=== PATIENT | male | born 1970 | race Two or more races ===

== ENCOUNTER 2025-02-07 11:02 | Emergency (ER) | payer MEDICAID, SELFPAY ==
[2025-02-07 11:03] VITALS: BMI 31.3
--- NOTE | 2025-02-07 11:06 | EKG_ITS ---
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
[2025-02-07 11:16] VITALS: BP 136/91; PULSE 88; RESP 18; TEMP 36.9; O2SAT 99
--- NOTE | 2025-02-07 11:17 | XR_ITS ---
Examination: PA chest single view TECHNIQUE: Upright PA chest single view Date and time: February 07, 2025, 1132 hours INDICATIONS: Chest pain coughing beginning 4 days ago FINDINGS: No significant cardiac enlargement No pneumonia or pulmonary edema The osseous structures are intact IMPRESSION: No pneumonia identified
--- NOTE | 2025-02-07 11:18 | PD.EDCHEST ---
ED Chest Pain RME/HPI General Stated Complaint: LIGHTHEADED/CHEST PAIN x 2 DAYS Time Seen by Provider: 02/07/25 11:13 Arrival date/time: 02/07/25 11:02 RME / HPI RME / HPI narrative: 55-year-old male patient with no significant past medical history, came in for evaluation regarding chest pain. Patient has been having chest pain, described as dull ache, or getting to the back, she been going for the last 2 days. This morning patient tried to go back to work, and felt dizzy. Patient has been sick for the last 1 week with flulike symptoms including productive cough with whitish phlegm. Denies any fever denies any other complaints no medication was taken prior to arrival. Related Data Previous Rx's ?Medication ?Instructions ?Recorded ibuprofen 600 mg tablet 600 mg PO Q8H PRN fever or pain 07/26/23 #30 tabs Allergies Allergy/AdvReac Type Severity Reaction Status Date / Time No Known Allergies Allergy Verified 02/07/25 11:05 Review of Systems Review of Systems Narrative Review of Systems: Review of system reviewed and within normal limits except mentioned in HPI ED Exam Narrative Physical exam: VITAL SIGNS: Reviewed. GENERAL APPEARANCE: Alert and interactive, follows commands, no acute distress, HEAD AND FACE: Non-traumatic. ENT: PERRL, pink conjunctivitis, eyelid no trauma, Mucous membrane moist. NECK: Supple, nontender, no nuchal rigidity. CHEST: No tenderness, no crepitus, no paradoxical movement, no retractions. LUNGS: Clear, well ventilated, symmetric, no rales, no wheezing, no ronchi, no stridor, good breath sounds bilaterally. HEART: Regular rate, regular rhythm, no murmur, no gallops. ABDOMEN: Soft, positive bowel sounds, nondistended, no guarding, nontender, no rebound, no masses, RECTAL: Deferred. GENITAL: Deferred. NEUROLOGICAL: Gross motor function intact sensory function intact, Appropriate for age. MUSCULOSKELETAL: low back nontender, full range of motion. EXTREMITIES: Nontender, full range of motion. SKIN: Color pink, dry, no rash, no lacerations, no abrasions, no contusions. LYMPHATICS: Deferred. Course Quality Measures none Orders Category Date Time Status EKG (ED ONLY) *Do not use* NOW Care 02/07/25 11:06 Completed EKG (ED Only) Stat Exams 02/07/25 11:06 Draft XR chest 1V Stat Exams 02/07/25 11:17 Completed CBC Stat Lab 02/07/25 11:30 Completed Comprehensive Metabolic Panel Stat Lab 02/07/25 11:30 Completed Partial Thromboplastin Time Stat Lab 02/07/25 11:30 Completed Troponin I Stat Lab 02/07/25 11:30 Completed Urinalysis, C/S if Indicated Stat Lab 02/07/25 11:50 Completed Vital Signs Vital signs: Vital Signs Temperature 98.5 F 02/07/25 11:16 Pulse Rate 88 02/07/25 11:16 Respiratory Rate 18 02/07/25 11:16 Blood Pressure 136/91 H 02/07/25 11:16 Pulse Oximetry (%) 99 02/07/25 11:16 Oxygen Delivery Method Room Air 02/07/25 11:16 Chest Pain MDM Narrative MDM Narrative:: 55-year-old male patient with no significant past medical history, came in for evaluation regarding chest pain. Patient has been having chest pain, described as dull ache, or getting to the back, she been going for the last 2 days. This morning patient tried to go back to work, and felt dizzy. Patient has been sick for the last 1 week with flulike symptoms including productive cough with whitish phlegm. Denies any fever denies any other complaints no medication was taken prior to arrival. Patient's cardiac workup today all came back normal. I personally reviewed and interpreted the x-ray of this patient. There is no acute abnormalities found, no infiltrates no pneumothorax no hemothorax normal chest x-ray. Review of other structures was without significant abnormal findings also. I additionally reviewed the radiologist report and agree with the interpretation. EKG showed normal sinus rhythm, ventricular rate of 69 bpm, no ST segment elevation depression noted. Results discussed with the patient. Patient stable for discharge home. Patient refused prescription of meclizine. Patient data External records reviewed:: None Clinical information provided by:: patient Social determinants that could affect healthcare access:: none Patient has the following chronic illnesses:: None How is presenting disease/condition affected by chronic disease/condition?: no chronic disease Evaluation data The following diagnostics were reviewed and interpreted by me:: lab results, radiology exam(s) and EKG tracing(s) Lab and/or radiology exams considered but not ordered:: None Interpretation Summary: See results MDM Medications / Prescriptions Medications or Prescriptions considered but not ordered:: None Medication administrations:: None Consultations Consultation(s) initiated? (list below): No Diagnosis Chest Pain Differential Diagnosis: stable angina, costochondritis and chest pain Most likely diagnosis given after review of the tests above:: Chest pain, dizziness Admission Indicated Admission indicated?: not indicated Admission Request Was there a request for admission?: No Disposition Plan Disposition Plan: Discharge Discharge Attestation Discharge Attestation: The patient was given an opportunity to ask questions and understood the discharge instructions. Discharge instructions specifically effects, indications for sooner follow up or return to the emergency department, and the expected course of current diagnosis. Patient condition: Stable Discharge Plan Plan Patient Disposition: HOME (Self Care) Discharge Disposition comment: Stable Prescriptions/Referrals Prescriptions/Med Rec: No Action ibuprofen 600 mg tablet 600 mg PO Q8H PRN (Reason: fever or pain) Qty: 30 0RF Referrals: No Primary/Family,Physician [Primary Care Provider] - In 1 week Problem List Clinical Impression: Chest pain, Dizziness Patient/Caregiver Discharge Instructions Discharge Activity: activity as tolerated Education Materials: ED Chest Pain, Noncardiac Additional Instructions: Thank you for the opportunity for serving you today. You are stable for discharged . You are advised to: Follow-up with your PCP in 1 to 2 days Return to ED for worsening of symptoms Increase oral fluids Print Language: Grenadian Stand Alone Forms: Cecily Award Info., Patient Portal Info Letter RACHEL/TORRIE Supervising Physician GARCIA Supervising Physician: MD Gui
[2025-02-07 11:49] LABS: Basophils # (Auto) 0.1 Thou/mm3 (0.0-0.2); Basophils % (Auto) 1 % (0-2.5); Eosinophils # (Auto) 0.2 Thou/mm3 (0.0-0.5); Eosinophils % (Auto) 3 % (0-10); Hematocrit 47.0 % (41.0-53.0); Hemoglobin 16.5 g/dL (13.5-16.0); Immature Granulocytes Auto 0.08 Thou/mm3 (0.00-0.00); Lymphocytes # (Auto) 2.7 Thou/mm3 (1.0-4.8); Lymphocytes % (Auto) 32 % (10-50); Mean Corpuscular HGB Conc 35.1 g/dl (31.0-37.0); Mean Corpuscular Hemoglobin 30.4 pg (25.0-35.0); Mean Corpuscular Volume 87 fL (80-100); Monocytes # (Auto) 0.6 Thou/mm3 (0.0-0.8); Monocytes % (Auto) 7 % (0-12); Neutrophils # (Auto) 4.9 Thou/mm3 (1.8-7.7); Neutrophils % (Auto) 57 % (37-80); Nucleated Red Blood Cell # 0.00 Thou/mm3 (0.00-0.00); Nucleated Red Blood Cell % 0 /100 WBC (0); Partial Thromboplastin Time 27.8 Seconds (22.0-36.0); Platelet Count 194 Thou/mm3 (140-440); RDW Standard Deviation 40.4 fL (35.1-43.9); Red Blood Count 5.42 Miln/mm3 (4.50-5.90); White Blood Count 8.5 Thou/mm3 (3.8-10.6)
[2025-02-07 11:57] LABS: Collection Type, Urine Clean Catch; Squamous Epithelial Cell,Urine 0 /hpf (0-5); WBC,Urine 0 /hpf (0-5)
[2025-02-07 12:04] LABS: Alanine Aminotransferase 29 U/L (10-49); Albumin, Serum 4.4 gm/dL (3.5-5.0); Albumin/Globulin Ratio 1.8 (1.2-2.2); Alkaline Phosphatase 66 U/L (46-116); Anion Gap 12 (7-16); Aspartate Amino Transferase 18 U/L (0-34); BUN/Creatinine Ratio 10 Ratio (12-20); Bilirubin,Total 0.8 mg/dL (0.3-1.2); Blood Urea Nitrogen 9 mg/dL (9-23); Calcium 9.7 mg/dL (8.3-10.6); Calcium (Corrected) 9.7 mg/dL (8.5-10.1); Carbon Dioxide 26.1 mMol/L (20.0-31.0); Chloride 104 mMol/L (98-107); Creatinine (Component) 0.9 mg/dL (0.6-1.3); Estimated Creatinine Clearance 97.3 mL/min (>60); Globulin 2.4 gm/dL (2.3-3.5); Glucose 112 mg/dL (74-106); Osmolality,Calculated 282 (275-295); Potassium 3.8 mMol/L (3.4-5.1); Sodium 142 mMol/L (136-145); Total Protein 6.8 gm/dL (5.7-8.2); Troponin I < 0.020 ng/mL (0.0-0.045); eGFR > 60 See Note
[2025-02-07 12:06] LABS: Bilirubin,Urine Negative (Negative); Blood,Urine Negative (Negative); Clarity,Urine Clear (Clear/Hazy); Color,Urine Lt-Yellow (Lt Yel-Yel); Culture Indicated,Urine Not Indicated; Glucose, Urine Negative (Negative); Ketones,Urine Negative (Negative); Leukocyte Esterase,Urine Negative (Negative); Nitrite,Urine Negative (Negative); PH,Urine 7.0 (5.0-7.0); Protein,Urine Negative (Neg - Trace); RBC,Urine < 1 /hpf (0-3); Specific Gravity,Urine 1.015 (1.001-1.035); Urobilinogen,Urine Negative mg/dL (0.0-1.0)
== END 2025-02-07 13:19 | disposition home or self-care (01) ==
PROVIDERS: Nurse Practitioner Family; Emergency Provider Family Medicine
DX: R42 Dizziness and giddiness (principal); R07.9 Chest pain, unspecified; R05.9 Cough, unspecified
CPT/HCPCS: 36415; 71045; 80053; 81001; 84484; 85025; 85730; 93005; 99283